=== PATIENT | male | born 1965 | race Caucasian/White ===

== ENCOUNTER 2019-06-03 13:08 | Outpatient (CLI) | payer MEDICAID ==
[~2019-06-03] VITALS: Ht 172.7 cm; Wt 68.9 kg
[2019-06-03] MEDS ORDERED: MULTIVITAMINS1 EAC2 ORAL (14:42)
[2019-06-03 14:43] VITALS: BP 107/58
--- NOTE | 2019-06-04 03:00 | Consultation ---
DATE OF CONSULTATION: 06/03/2019 CONSULTING PHYSICIAN: London Parikh M.D. CHIEF COMPLAINT: Screening colonoscopy evaluation. PAST MEDICAL HISTORY: None. PAST SURGICAL HISTORY: None. MEDICATIONS: Multivitamin. FAMILY HISTORY: Father had hypertension and coronary artery disease. SOCIAL HISTORY: The patient is a social drinker. No IV drug abuse. Note, tobacco abuse. ALLERGIES: No known drug allergy. REVIEW OF SYSTEMS: A 10-point review of systems was performed and pertinent positives in HPI. PHYSICAL EXAMINATION: VITAL SIGNS: Temperature 97.8, blood pressure 107/58, pulse 60, respirations 18. HEENT: Normocephalic and atraumatic. Sclerae anicteric. NECK: Supple. No evidence of obvious lymphadenopathy. CARDIOVASCULAR: Regular rate and rhythm. Plus S1 and S2. No obvious murmur. LUNGS: Clear to auscultation bilaterally. ABDOMEN: Positive bowel sounds. Soft and nontender. No rebound. No guarding. No peritoneal sign. EXTREMITIES: No cyanosis. No clubbing. No edema. ASSESSMENT AND PLAN: The patient is a 54-year-old male, who was referred to us for screening colonoscopy. The patient was given instructions and the for colonoscopy and waiting for authorization. has been approved, the patient will be scheduled. London Parikh M.D. DR: CHINMAY JOB#: [id number] CC:
== END 2019-06-03 15:08 | disposition home or self-care (01) ==
LOC: PAN 13:08
DX: Z12.11 Encounter for screening for malignant neoplasm of colon (principal)

== ENCOUNTER 2019-08-25 10:15 | Outpatient (CLI) | payer MEDICAID ==
[~2019-08-25 10:15] MED LIST: MULTIVITAMINS1 EAC2 ORAL
[2019-08-25] MEDS ORDERED: DEXILANT60 MG ORAL (12:39)
--- NOTE | 2019-08-26 10:38 | General Progress Note ---
Assessment/Plan Assessment/Plan: one colon polyp repeat colonoscopy in 5 years Subjective Allergies: Coded Allergies: No Known Allergies (Unverified , 06/03/19) Objective General Appearance: alert EENT: PERRL/EOMI Neck: supple Cardiovascular: normal rate Respiratory/Chest: lungs clear Abdomen: normal bowel sounds, non tender, soft London Parikh MD Aug 26, 2019 10:38
== END 2019-08-25 12:15 | disposition home or self-care (01) ==
LOC: PAN 10:15
DX: K63.5 Polyp of colon (principal)